=== PATIENT | male | born 1950 | race Caucasian/White ===

== ENCOUNTER → 2019-02-08 | Outpatient (CLI) | payer BC | END | disposition home or self-care (01) | LOC: LAB 10:19 | PROVIDERS: ATTEND Hospitalist | DX: D64.9 Anemia, unspecified (principal); D68.9 Coagulation defect, unspecified; N18.3 Chronic kidney disease, stage 3 (moderate); N39.0 Urinary tract infection, site not specified | CPT/HCPCS: 71045; 80048; 81003; 85025; 85610; 85730; 87081 ==

== ENCOUNTER 2019-05-30 16:16 | Emergency (ER) | payer BC ==
[~2019-05-30] VITALS: Ht 188 cm; Wt 90.9 kg
[2019-05-30 16:30] VITALS: BP 136/87; PULSE 85; RESP 18; Ht 188 cm; Wt 90.9 kg
== END 2019-05-30 16:45 | disposition home or self-care (01) ==
LOC: E/R 16:16
DX: M79.662 Pain in left lower leg (principal); I10 Essential (primary) hypertension; M79.89 Other specified soft tissue disorders
CPT/HCPCS: 93971